=== PATIENT | female | born 1980 | race Caucasian/White ===

== ENCOUNTER 2019-06-28 05:34 | Emergency (ER) | payer MEDICAID, OTHER ==
[~2019-06-28] VITALS: Ht 170.2 cm; Wt 101.8 kg
[2019-06-28] MEDS ORDERED: FLUORESCEIN SODIUM 1 MG STRIP ONE (06:42)
[2019-06-28] MEDS ORDERED: PROPARACAINE HCL 0.5% 15 ML OPHTHALMIC SOLUTION OU ONE (06:45)
[2019-06-28] MEDS ORDERED: ERYTHROMYCIN 0.5% 3.5 GM TUBE OPHTHALMIC OINTMENT ONE (06:45)
[2019-06-28] MEDS ORDERED: ACETAMINOPHEN 500 MG TABLET PO ONE (07:30)
[2019-06-28] MEDS ORDERED: IBUPROFEN 600 MG TABLET PO ONE (07:30)
[2019-06-28 07:56] VITALS: BP 144/91
== END 2019-06-28 08:28 | disposition home or self-care (01) ==
LOC: EMS 05:38
DX: S00.12XA Contusion of left eyelid and periocular area, initial encounter (principal); S80.11XA Contusion of right lower leg, initial encounter; H10.9 Unspecified conjunctivitis; W18.39XA Other fall on same level, initial encounter; Y93.89 Activity, other specified; Y92.89 Other specified places as the place of occurrence of the external cause; Y99.8 Other external cause status

== ENCOUNTER 2020-04-29 17:56 | Emergency (ER) | payer OTHER ==
[~2020-04-29] VITALS: Ht 170.2 cm; Wt 88.2 kg
[2020-04-29 18:42] LABS: BASOPHILS % (AUTO) 0.6 % (0.0-2.0); EOSINOPHILS % (AUTO) 1.2 % (1.0-6.0); HEMATOCRIT 36.8 % (36-46); HEMOGLOBIN 12.2 g/dL (12.0-16.0); LYMPHOCYTES # (AUTO) 1.3 K/uL (1.0-4.8); LYMPHOCYTES % (AUTO) 25.6 % (22.0-44.0); MEAN CORPUSCULAR HEMOGLOBIN 29.7 pg (26.0-34.0); MEAN CORPUSCULAR HGB CONC 33.2 G/dL (31.0-37.0); MEAN CORPUSCULAR VOLUME 90 fL (80-100); MONOCYTES # (AUTO) 0.5 K/uL (0.1-1.0); MONOCYTES % (AUTO) 8.9 % (2.0-9.0); NEUTROPHILS # (AUTO) 3.3 K/uL (1.8-7.7); NEUTROPHILS % (AUTO) 63.7 % (40.0-70.0); PLATELET COUNT (AUTO) 202 K/uL (150-450); RED BLOOD CELL COUNT(AUTO) 4.12 MIL/uL (4.00-5.20); RED CELL DISTRIBUTION WIDTH 13.9 % (11.5-14.5)
[2020-04-29] MEDS ORDERED: MedroxyPROGESTERone ACET 5 MG TABLET PO ONE (19:30)
[2020-04-29 20:05] VITALS: BP 137/77
== END 2020-04-29 20:12 | disposition home or self-care (01) ==
LOC: EMS 17:57
DX: N93.8 Other specified abnormal uterine and vaginal bleeding (principal)

== ENCOUNTER 2022-03-30 00:20 | Emergency (ER) | payer OTHER ==
[~2022-03-30] VITALS: Ht 167.6 cm; Wt 85.0 kg
[2022-03-30 01:58] VITALS: BP 135/92
[2022-03-30 02:13] LABS: BASOPHILS % (AUTO) 0.5 % (0.0-2.0); EOSINOPHILS % (AUTO) 1.1 % (1.0-6.0); HEMATOCRIT 35.5 % (36-46); HEMOGLOBIN 12.1 g/dL (12.0-16.0); LYMPHOCYTES # (AUTO) 1.3 K/uL (1.0-4.8); LYMPHOCYTES % (AUTO) 27.9 % (22.0-44.0); MEAN CORPUSCULAR HEMOGLOBIN 28.5 pg (26.0-34.0); MEAN CORPUSCULAR HGB CONC 34.1 G/dL (31.0-37.0); MEAN CORPUSCULAR VOLUME 84 fL (80-100); MONOCYTES # (AUTO) 0.5 K/uL (0.1-1.0); MONOCYTES % (AUTO) 11.1 % (2.0-9.0); NEUTROPHILS # (AUTO) 2.8 K/uL (1.8-7.7); NEUTROPHILS % (AUTO) 59.4 % (40.0-70.0); PLATELET COUNT (AUTO) 193 K/uL (150-450); RED BLOOD CELL COUNT(AUTO) 4.25 MIL/uL (4.00-5.20); RED CELL DISTRIBUTION WIDTH 14.8 % (11.5-14.5)
[2022-03-30 02:21] LABS: ANION GAP 2 mmol/L (8-16); CALCIUM, TOTAL 8.4 mg/dL (8.8-10.5); CARBON DIOXIDE 30 mmol/L (22-29); CHLORIDE 105 mmol/L (98-107); CREATININE 0.91 mg/dL (0.60-1.30); GLOMERULAR FILTR. RATE CALC > 60 mL/min (>60); GLUCOSE,RANDOM 96 mg/dL (70-110); POTASSIUM 3.7 mmol/L (3.5-5.1); SODIUM SERUM 137 mmol/L (136-145); UREA NITROGEN, BLOOD 12 mg/dL (7-18)
[2022-03-30] MEDS ORDERED: DEXT15DR21 OS (02:23)
[2022-03-30] MEDS ORDERED: PRED-554 PO (02:23)
[2022-03-30] MEDS ORDERED: [UNRECOGNIZED DRUG - CODE] PO (02:23)
[2022-03-30] MEDS ORDERED: LANO3.5O OS (02:23)
[2022-03-30 02:27] LABS: ALANINE AMINOTRANSFERASE 18 U/L (12-78); ALBUMIN 3.2 g/dL (3.4-5.0); ALKALINE PHOSPHATASE 76 U/L (46-116); ASPARTATE AMINOTRANSFERASE 11 U/L (15-37); BILIRUBIN,TOTAL 0.3 mg/dL (0.1-1.0); TOTAL PROTEIN, SERUM 6.7 g/dL (6.4-8.2)
== END 2022-03-30 02:42 | disposition home or self-care (01) ==
LOC: EMS 00:22
DX: G51.0 Bell's palsy (principal); Z86.69 Personal history of other diseases of the nervous system and sense organs; Z87.898 Personal history of other specified conditions; Z98.890 Other specified postprocedural states
CPT/HCPCS: 99283; 80053; 84703; 85025; 36415; G0480